=== PATIENT | male | born 1965 | race Caucasian/White ===

== ENCOUNTER 2017-01-24 08:35 | Emergency (ER) | payer MEDICARE, MEDICAID ==
[~2017-01-24] VITALS: Ht 149.9 cm; Wt 68.0 kg
[~2017-01-24 08:35] MED LIST: CICLOPIROX15 GM TP; DEPAKOTE250 MG PO; DIPHENHYDRAMINE25 M1 ORAL; FENOFIBRATE54 MG ORAL; FLOMAX0.4 MG ORAL; GUAIATUSSIN AC L5 ML PO; HYDROCORTISONE28 G2 TP; IBUPROFEN600 MG ORAL; KETOCONAZOLE15 GM TOP; LATUDA40 MG PO; LEVOTHYROXINE25 MCG ORAL; MONTELUKAST SOD10 MG ORAL; MULTI VITAMIN1 EACH ORAL; OMEPRAZOLE20 M2 ORAL; PROMETHAZI6.25 MG/1 ORAL; PROTONIX40 M1 IVP; SYMBICORT 1601 PUFFS INH; UNASYN3 GM IVPB; ZOFRAN4 M3 IVP
[2017-01-24 09:15] VITALS: BP 121/56
--- NOTE | 2017-01-24 09:49 | Emergency Room Report ---
History of Present Illness General Chief Complaint: General Complaint Source: Patient Present Illness HPI 51-year-old male history of Down's syndrome brought by his wax pattern assembler for rash. Dietary Assistant states that he saw patient shampoo and rub it on his hands his arms and his legs. Now complains of a slight yellowish discoloration only on those areas. Denies any fever or chills abdominal pain nausea or vomiting. Denies any itchiness or rash. Allergies: Coded Allergies: No Known Allergies (Unverified , 11/27/15) Patient History Past Medical History: see triage record Past Surgical History: none Pertinent Family History: none Nursing Documentation-PMH Hx Cardiac Problems: Yes Hx Hypertension: No - HYPOTHYROIDSIM Hx Asthma: Yes Hx Cancer: No Hx Gastrointestinal Problems: Yes Hx Neurological Problems: No Hx Seizures: Yes Hx Epilepsy: Yes Review of Systems All Other Systems: negative except mentioned in HPI Physical Exam Vital Signs Date Time Temp Pulse Resp B/P Pulse Ox O2 Delivery O2 Flow Rate FiO2 01/24/17 08:40 97.5 85 16 118/53 97 01/24/17 09:15 Room Air Sp02 EP Interpretation: reviewed, normal General Appearance: normal inspection, well appearing, no apparent distress, alert, GCS 15, non-toxic, other - Middle age male Down's syndrome not in acute distress Head: normocephalic, atraumatic Eyes: bilateral eye EOMI, bilateral eye PERRL, bilateral eye normal inspection ENT: normal ENT inspection, normal pharynx, normal voice, moist mucus membranes Neck: normal inspection, full range of motion, supple Respiratory: normal inspection, lungs clear, normal breath sounds, no respiratory distress, no retraction, no wheezing, speaking full sentences, chest symmetrical Cardiovascular #1: normal inspection, regular rate, rhythm, normal capillary refill Gastrointestinal: normal inspection, non tender, soft, non-distended, no guarding Genitourinary: no CVA tenderness Musculoskeletal: normal inspection, back normal, normal range of motion, non- tender Neurologic: normal inspection, alert, oriented x3, responsive, motor strength/ tone normal, sensory intact, normal gait Psychiatric: normal inspection, judgement/insight normal, memory normal Skin: normal inspection, warm/dry, well hydrated, normal turgor, other - Yellowish discoloration of bilateral forearms palms of hands and anterior shins. Medical Decision Making Diagnostic Impression: Primary Impression: Localized rash ER Course 51 yo M with down syndrome p/w rash to arms and palms. wax pattern assembler saw him put shampoo on his arms DDX: benign rash from shampoo NO generalized jaundice. no fever or chills. no abd sx Plan: none ER course: Patient has remained stable during ED stay. ambulatory and nontoxic Disposition: Patient is to be discharged to home with wax pattern assembler Patient is instructed to follow up with their primary care doctor within 2 days for resolution of rash Strict return precautions discussed with patient/wax pattern assembler such as fever, chills , worsening/severe pain, nausea, vomiting, which may indicate severe illness. Patient and wax pattern assembler verbalizes understanding and agrees with plan. Last Vital Signs Date Time Temp Pulse Resp B/P Pulse Ox O2 Delivery O2 Flow Rate FiO2 01/24/17 09:15 97.6 87 15 121/56 98 Room Air Disposition: HOME, SELF-CARE Condition: Stable Referrals: NOT CHOSEN IPA/MD,REFERRING (PCP) Additional Instructions: Please follow up with your primary care doctor within 2 days for resolution of rash. Please return to the emergency room immediately if you are experiencing severe or worsening pain, high fevers or chills, chest pain, shortness of breath, severe abdominal pain, nausea or vomiting. Azeb Streeter M.D. Jan 24, 2017 09:49
[2017-01-24 10:19] VITALS: BP 121/56
== END 2017-01-24 10:21 | disposition home or self-care (01) ==
LOC: EMR 09:16
DX: R21 Rash and other nonspecific skin eruption (principal); Q90.9 Down syndrome, unspecified; E03.9 Hypothyroidism, unspecified; J45.909 Unspecified asthma, uncomplicated
CPT/HCPCS: 99282

== ENCOUNTER 2017-02-16 14:22 | Emergency (ER) | payer MEDICARE, MEDICAID ==
[~2017-02-16] VITALS: Ht 160 cm; Wt 64.9 kg
[2017-02-16 14:43] VITALS: BP 134/77
[2017-02-16] MEDS ORDERED: MELATONIN 3 MG1 EAC1 PO (14:48)
[2017-02-16] MEDS ORDERED: BANOPHEN50 MG PO (14:50)
--- NOTE | 2017-02-16 14:50 | Emergency Room Report ---
History of Present Illness General Chief Complaint: Pain Source: Caregiver Present Illness HPI Patient is a 51-year-old male with a history of Down syndrome accompanied by welder shielded metal arc presenting for left knee pain. The welder shielded metal arc states that pain began today in the patient has been complaining he can't walk due to the pain. The patient and the welder shielded metal arc deny any known trauma to the area. The patient does have a history of gout. Pain is a 10 out of 10 dull ache and does not radiate. Worse with movement. The welder shielded metal arc denies other symptoms for the patient including fever, chills, rash Allergies: Coded Allergies: No Known Allergies (Unverified , 11/27/15) Patient History Past Medical History: see triage record Pertinent Family History: none Reviewed Nursing Documentation: PMH: Agreed, PSxH: Agreed Nursing Documentation-PMH Hx Asthma: Yes Hx Cancer: No Hx Gastrointestinal Problems: Yes Hx Seizures: Yes Hx Epilepsy: Yes Review of Systems All Other Systems: negative except mentioned in HPI Physical Exam Vital Signs Date Time Temp Pulse Resp B/P (MAP) Pulse Ox O2 Delivery O2 Flow Rate FiO2 02/16/17 14:32 98.1 112 20 134/77 98 Room Air Sp02 EP Interpretation: reviewed, normal General Appearance: no apparent distress, alert, GCS 15, non-toxic Head: normocephalic, atraumatic Eyes: bilateral eye normal inspection, bilateral eye PERRL Neck: full range of motion, supple/symm/no masses Respiratory: chest non-tender, lungs clear, normal breath sounds, speaking full sentences Cardiovascular #1: regular rate, rhythm, no edema Gastrointestinal: normal bowel sounds, non tender, soft, non-distended, no guarding, no rebound Musculoskeletal: back normal, decreased range of motion, swelling - L knee mild edema, tender - TTP over the L anterior knee jointline Neurologic: alert, oriented x3, responsive, motor strength/tone normal, sensory intact, speech normal Psychiatric: judgement/insight normal, memory normal, mood/affect normal, no suicidal/homicidal ideation Skin: normal color, no rash, warm/dry, well hydrated Lymphatic: no adenopathy Medical Decision Making PA Attestation Dr. Stewart is my supervising physician. Patient management was discussed with my supervising physician Diagnostic Impression: Primary Impression: Knee pain, left Qualified Codes: M25.562 - Pain in left knee ER Course The patient is a 51-year-old male presenting for left knee pain. Differential diagnoses considered but not limited to: Strain, sprain, contusion , fracture, osteoarthritis, cellulitis, gout, among others Physical exam reveals tenderness to palpation over the left knee with mild edema and erythema. Warm to the touch. X-ray of the left knee unremarkable As the patient has a history of gout, he will be treated with a prescription for naproxen and he needs to followup with his primary doctor as soon as possible. This was explained to the caregiver. She understands. ER precautions are given Other X-Ray Diagnostic Results Other X-Ray Diagnostic Results : X-Ray ordered: L knee # of Views/Limited Vs Complete: 3 View Indication: Pain EP Interpretation: Yes Interpretation: no dislocation, no soft tissue swelling, no fractures Impression: No acute disease Electronically Signed by: DO ESSIE Green Scribe Text I am acting as scribe for my supervising physician. My supervising physician's interpretation of the L knee xrays are there are no fractures, dislocations or soft tissue swelling. Last Vital Signs Date Time Temp Pulse Resp B/P (MAP) Pulse Ox O2 Delivery O2 Flow Rate FiO2 02/16/17 14:43 98.1 20 134/77 98 Room Air 02/16/17 14:32 112 Status: improved Disposition: HOME, SELF-CARE Condition: Improved Scripts Naproxen* (NAPROXEN*) 500 Mg Tablet 500 MG ORAL TWICE A DAY, #20 TAB Prov: LEODAN PINTO 02/16/17 LEODAN PINTO Feb 16, 2017 14:50
[2017-02-16] MEDS ORDERED: SYMBICORT 80-10.2 G1 IH (14:53)
[2017-02-16] MEDS ORDERED: VENTOLIN HFA18 GM INH (14:56)
[2017-02-16] MEDS ORDERED: ZOFRAN4 M3 ORAL (14:56)
--- NOTE | 2017-02-16 15:22 | Diagnostic Imaging Report ---
Indication: PAIN Technique: 4 views of the left knee Comparison: None Findings:No acute fractures. No dislocations. No suprapatellar effusion. There is medial compartmental degenerative joint space narrowing. There is ossification adjacent to the medial upper condyle. This may reflect old ligamentous injury Impression:No acute process Mild degenerative changes, as described
[2017-02-16] MEDS ORDERED: Naproxen 500mg tab ORAL ONE (15:30)
[2017-02-16] MEDS ORDERED: NAPROXEN500 M2 ORAL (15:44)
[2017-02-16 16:09] VITALS: BP 134/77
== END 2017-02-16 16:09 | disposition home or self-care (01) ==
LOC: EMR 14:55
DX: M25.562 Pain in left knee (principal); J45.909 Unspecified asthma, uncomplicated; Q90.9 Down syndrome, unspecified
CPT/HCPCS: 99283

== ENCOUNTER 2019-01-29 10:15 | Emergency (ER) | payer MEDICARE, MEDICAID ==
[~2019-01-29] VITALS: Ht 152.4 cm; Wt 68.0 kg
[~2019-01-29 10:15] MED LIST changes: +BANOPHEN50 MG PO; +MELATONIN 3 MG1 EAC1 PO; +NAPROXEN500 M2 ORAL; +SYMBICORT 80-10.2 G1 IH; +VENTOLIN HFA18 GM INH; +ZOFRAN4 M3 ORAL
[2019-01-29] MEDS ORDERED: FENOFIBRATE48 MG ORAL (10:24)
[2019-01-29] MEDS ORDERED: Cephalexin 500mg cap ORAL ONE (10:45)
[2019-01-29 11:01] VITALS: BP 148/74
--- NOTE | 2019-01-29 11:04 | NUR ---
ED Nurse Note:pt. came with caregiver, complaining about right lower leg small wound after falling recently, x-ray was done and PO med given
--- NOTE | 2019-01-29 11:24 | Diagnostic Imaging Report ---
EXAM: XR Right Tibia and Fibula, 2 Views CLINICAL HISTORY: TRAUMA TECHNIQUE: Frontal and lateral views of the right tibia and fibula. COMPARISON: None FINDINGS: Bones/joints: No displaced fracture or dislocation identified. Mild degenerative changes of the right knee. Quadriceps tendon and patellar tendon enthesophytes of the patella. Plantar and calcaneal spurs. No right knee joint effusion. Soft tissues: Soft tissue swelling in the right lower leg and about the right ankle. IMPRESSION: No displaced fracture or dislocation identified.
[2019-01-29] MEDS ORDERED: CEPHALEXIN500 MG ORAL (11:47)
[2019-01-29] MEDS ORDERED: BACTRIM DS TAB1 EAC1 ORAL (11:48)
[2019-01-29 11:57] VITALS: BP 148/74
--- NOTE | 2019-01-29 11:59 | NUR ---
ER DISCHARGE NOTE: Patient is cleared to be discharged per ERMD with caregiver, on room air, with stable vital signs. pt was given dc and prescription instructions, pt was able to verbalize understanding, pt id band and removed without complications. pt is able to ambulate with steady gait. pt took all belongings.
--- NOTE | 2019-01-29 13:00 | Emergency Room Report ---
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 confirms the history There was no obvious reports of fevers patient denies any focal weakness Allergies: Coded Allergies: No Known Allergies (Unverified , 11/27/15) Patient History Past Medical History: see triage record Reviewed Nursing Documentation: PMH: Agreed; PSxH: Agreed Nursing Documentation-PMH Past Medical History: No History, Except For Hx Asthma: Yes Hx Cancer: No Hx Gastrointestinal Problems: Yes Hx Seizures: Yes Hx Epilepsy: Yes Review of Systems All Other Systems: negative except mentioned in HPI Physical Exam Vital Signs Date Time Temp Pulse Resp B/P (MAP) Pulse Ox O2 Delivery O2 Flow Rate FiO2 01/29/19 10:18 98.1 98 16 148/74 (98) 96 Room Air Sp02 EP Interpretation: reviewed, normal General Appearance: well appearing, no apparent distress Head: other - Clinical findings consistent with Down syndrome Eyes: bilateral eye PERRL ENT: normal pharynx, no angioedema Neck: supple Respiratory: lungs clear, no retraction, no accessory muscle use Cardiovascular #1: regular rate, rhythm Gastrointestinal: soft Musculoskeletal: other - Abrasions to the right lateral tibial area mild erythema mild swelling compared to the left side Neurologic: alert, oriented x3, responsive Skin: other - As above Lymphatic: no adenopathy Medical Decision Making Diagnostic Impression: Primary Impression: cellulitis ER Course Given the history exam and findings patient had x-ray imaging done to rule out any occult fracture from the trauma X-ray was negative given the appearance there is some evidence of cellulitis as well Patient initiated on oral antibiotics will have initial conservative attempt and return with any changes Other X-Ray Diagnostic Results Other X-Ray Diagnostic Results : X-Ray ordered: Right tib-fib # of Views/Limited Vs Complete: 2 View Indication: Pain EP Interpretation: Yes Interpretation: no dislocation, no fractures, other - Soft tissue swelling Impression: Other - mild soft tissue swelling Electronically Signed by: Adeel Rodriguez DO Last Vital Signs Date Time Temp Pulse Resp B/P (MAP) Pulse Ox O2 Delivery O2 Flow Rate FiO2 01/29/19 11:57 98.1 80 16 148/74 96 Room Air Status: improved Disposition: HOME, SELF-CARE Condition: Improved Scripts Trimethoprim/Sulfamethoxazole 160/800* (BACTRIM DS TABLET*) 1 Each Tablet 1 TAB ORAL Q12H, #14 TAB 0 Refills Prov: Adeel Rodriguez DO 01/29/19 Cephalexin* (KEFLEX*) 500 Mg Capsule 500 MG ORAL EVERY 6 HOURS for 10 Days, CAP Prov: Adeel Rodriguez DO 01/29/19 Referrals: NON PHYSICIAN (PCP) Patient Instructions: Cellulitis, [id number] Additional Instructions: Patient is provided with the discharge instructions notified to follow up with primary doctor in the next 2-3 days otherwise return to the er with any worsening symptoms. Please note that this report is being documented using [employer] technology. This can lead to erroneous entry secondary to incorrect interpretation by the dictating instrument. Adeel Rodriguez DO Jan 29, 2019 13:00
== END 2019-01-29 11:59 | disposition home or self-care (01) ==
LOC: EMR 10:36
DX: L03.115 Cellulitis of right lower limb (principal); G40.909 Epilepsy, unspecified, not intractable, without status epilepticus; J45.909 Unspecified asthma, uncomplicated
CPT/HCPCS: 99283

== ENCOUNTER 2019-03-26 03:35 | Emergency (ER) | payer MEDICARE, MEDICAID ==
[~2019-03-26] VITALS: Ht 152.4 cm; Wt 88.9 kg
[~2019-03-26 03:35] MED LIST changes: +BACTRIM DS TAB1 EAC1 ORAL; +CEPHALEXIN500 MG ORAL; +FENOFIBRATE48 MG ORAL
--- NOTE | 2019-03-26 03:50 | NUR ---
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 PT STATES HES HAVING AN ASTHMA ATTACK SINCE 9PM
[2019-03-26 03:54] VITALS: BP 143/71
--- NOTE | 2019-03-26 03:55 | NUR ---
ED Nurse Note: ARIES CAREGIVER AT BEDSIDE
--- NOTE | 2019-03-26 04:02 | NUR ---
ED Nurse Note: RT AT BEDSIDE
[2019-03-26] MEDS ORDERED: PREDNISONE20 MG ORAL (04:12)
[2019-03-26] MEDS ORDERED: ALBUTEROL SULF8.5 GM INH (04:12)
--- NOTE | 2019-03-26 04:12 | Emergency Room Report ---
History of Present Illness General Chief Complaint: Asthma Source: Patient, Medical Record Present Illness HPI 53-year-old male who has Down syndrome and asthma. Brought in by caregiver for wheezing and short of breath. Onset for last 2 days. His asthma is well controlled and he is only taking steroid inhaler. No albuterol inhaler. His cough and congestion of the last couple days. Coughing is productive of sputum. Worse with exertion. No fever chills. No nausea no vomiting. Last steroid use was a long time ago. Allergies: Coded Allergies: No Known Allergies (Unverified , 11/27/15) Patient History Past Medical History: see triage record, old chart reviewed, asthma Past Surgical History: none Pertinent Family History: none Social History: Denies: smoking Immunizations: other Reviewed Nursing Documentation: PMH: Agreed; PSxH: Agreed Nursing Documentation-PMH Past Medical History: No History, Except For Hx Asthma: Yes Hx Cancer: No Hx Gastrointestinal Problems: Yes Hx Seizures: Yes Hx Epilepsy: Yes Review of Systems Eye: Denies: eye pain, blurred vision ENT: Reports: nose congestion; Denies: ear pain, throat swelling Respiratory: Reports: cough, shortness of breath, wheezing Cardiovascular: Denies: chest pain, palpitations Gastrointestinal: Denies: abdominal pain, diarrhea, nausea, vomiting Musculoskeletal: Denies: back pain, joint pain Skin: Denies: rash Neurological: Denies: headache, numbness Endocrine: Denies: increased thirst, increased urine Hematologic/Lymphatic: Denies: easy bruising All Other Systems: negative except mentioned in HPI Physical Exam Vital Signs Date Time Temp Pulse Resp B/P (MAP) Pulse Ox O2 Delivery O2 Flow Rate FiO2 03/26/19 03:45 98.4 100 20 143/71 (95) 94 Room Air Vitals normal Sp02 EP Interpretation: reviewed, normal General Appearance: well appearing, no apparent distress, alert Head: normocephalic, atraumatic Eyes: bilateral eye PERRL, bilateral eye EOMI ENT: hearing grossly normal, normal pharynx Neck: full range of motion, supple, no meningismus Respiratory: chest non-tender, wheezing - Slight Cardiovascular #1: regular rate, rhythm, no murmur Gastrointestinal: normal bowel sounds, non tender, no mass, no organomegaly, no bruit, non-distended Musculoskeletal: back normal, gait/station normal, normal range of motion Psychiatric: mood/affect normal Medical Decision Making Diagnostic Impression: Primary Impression: Asthma exacerbation Qualified Codes: J45.21 - Mild intermittent asthma with (acute) exacerbation Additional Impression: URI (upper respiratory infection) Qualified Codes: J06.9 - Acute upper respiratory infection, unspecified ER Course This patient has an upper respiratory infection worsening his asthma. He looks well. No evidence of any sepsis, pneumonia, ACS to name a few. Better after breathing treatment. Will discharge home. Last Vital Signs Date Time Temp Pulse Resp B/P (MAP) Pulse Ox O2 Delivery O2 Flow Rate FiO2 03/26/19 03:54 100 20 Room Air 03/26/19 03:54 98.4 143/71 94 Status: improved Disposition: HOME, SELF-CARE Condition: Stable Scripts Prednisone* (PREDNISONE*) 20 Mg Tablet 40 MG ORAL DAILY, #8 TAB Prov: Cruz Adams MD 03/26/19 Albuterol Sulfate* (ALBUTEROL SULFATE MDI*) 8.5 Gm Hfa.aer.ad 2 PUFF INH Q4H PRN for cough/wheezing, #1 EA 0 Refills Prov: Cruz Adams MD 03/26/19 Referrals: NON PHYSICIAN (PCP) Patient Instructions: Asthma, Adult Additional Instructions: Follow-up with your doctor in 7 days. Return if symptoms worsen. Cruz Adams MD Mar 26, 2019 04:12
[2019-03-26 04:15] VITALS: BP 137/76
[2019-03-26] MEDS ORDERED: Albuterol/Ipratropium 3ml neb HHN ONE (04:15)
--- NOTE | 2019-03-26 04:15 | NUR ---
ER DISCHARGE NOTE: Patient is cleared to be discharged per ERMD, pt is aox4, on room air, with stable vital signs. pt hiv/aids care nurse was given dc instructions and prescription, pt caregiver was able to verbalize understanding, pt id band removed. pt is able to ambulate with steady gait. pt took all belongings.
== END 2019-03-26 04:15 | disposition home or self-care (01) ==
LOC: EMR 03:57
DX: J45.21 Mild intermittent asthma with (acute) exacerbation (principal); J06.9 Acute upper respiratory infection, unspecified; G40.909 Epilepsy, unspecified, not intractable, without status epilepticus; Q90.9 Down syndrome, unspecified; Z79.51 Long term (current) use of inhaled steroids
CPT/HCPCS: 94640; 99283; J7512; J7620